=== PATIENT | female | born 1970 | race African-American/Black ===

== ENCOUNTER 2017-07-25 12:29 | Emergency (ER) | payer OTHER ==
[~2017-07-25] VITALS: Ht 162.6 cm; Wt 59.0 kg
[~2017-07-25 12:29] MED LIST: DEPAKOTE125 MG; HYDRALAZINE HCL10 MG PO; LEVOTHYROXINE25 MCG; METOPROLOL SUCC25 MG; MORPHINE SULFAT30 M1; NORCO 10-325 T1 EACH; PROZAC10 MG; XANAX0.25 MG
[2017-07-25] MEDS ORDERED: KETOROLAC TROMETHAMINE 60 MG/2 ML VIAL IM ONE (13:00)
--- NOTE | 2017-07-25 15:07 | Diagnostic Imaging Report ---
PROCEDURE:SACRUM \T\ COCCYX INDICATION:Fall COMPARISON:None. FINDINGS: See conclusion. CONCLUSION: No evidence of acute displaced fracture or dislocation of the sacrum/coccyx. If there is high clinical concern, consider obtaining CT for better evaluation. Dictated by: Drake Branham M.D. on 07/25/2017 at 15:15 Electronically approved by: Drake Branham M.D. on 07/25/2017 at 15:15
--- NOTE | 2017-07-25 15:08 | Diagnostic Imaging Report ---
PROCEDURE:L-SPINE COMPLETE COMPARISON:None. INDICATIONS:LOW BACK PAIN FROM FALL FINDINGS: There are 5 lumbar-type vertebral bodies. The vertebral bodies are well-aligned without evidence of spondylolisthesis. There are no fractures, lytic or blastic lesions. The disc-space heights are well-maintained. The sacroiliac joints are unremarkable. CONCLUSION: Normal lumbar spine radiograph. Dictated by: Drake Branham M.D. on 07/25/2017 at 15:16 Electronically approved by: Drake Branham M.D. on 07/25/2017 at 15:16
== END 2017-07-25 17:15 | disposition home or self-care (01) ==
LOC: ER 12:29
DX: S39.012A Strain of muscle, fascia and tendon of lower back, initial encounter (principal); W18.30XA Fall on same level, unspecified, initial encounter; S30.0XXA Contusion of lower back and pelvis, initial encounter; I10 Essential (primary) hypertension; E11.9 Type 2 diabetes mellitus without complications; E03.9 Hypothyroidism, unspecified
CPT/HCPCS: 72110; 72220; 96372; 99283; J1885